=== PATIENT | female | born 1970 | race Caucasian/White ===

== ENCOUNTER 2016-11-02 10:41 | Day surgery (SDC) | payer OTHER ==
[~2016-11-02] VITALS: Ht 175.3 cm; Wt 93.0 kg
[~2016-11-02 10:41] MED LIST: 0.9% Sodium Chloride 1,000 ML IV SCH; AMT25T PO; GABA300C PO; OMEP20TA86 PO; Sodium Chloride LOK Flush 10 mL Syringe IV PRN; fentaNYL-PF 50 mCg/mL 2 mL Inj IVPUSH PRN
[2016-11-02 10:57] VITALS: BP 127/91; PULSE 65; RESP 16; O2SAT 98
[2016-11-02 11:38] VITALS: BP 116/78; PULSE 63; RESP 14; O2SAT 98
[2016-11-02 11:51] VITALS: BP 108/77; PULSE 75; O2SAT 98
--- NOTE | 2016-11-02 13:04 | ENDO ---
[address] [address] ENDOSCOPY PROCEDURE PATIENT: MAGGIE PATINO : 1970 MR#: [id number] ADMIT: 11/02/2016 JOB ID: [id number] DATE: 11/02/2016 PROCEDURE: Esophagogastroduodenoscopy. 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 She currently is not taking her PPI daily as she is worried about possible side effects. The patient's ASA classification is 1. Mallampati score is 2. MEDICATIONS: 1. Versed 5 mg. 2. Fentanyl 100 mcg. INSTRUMENT USED: GIF H 180 J. PROCEDURE DETAILS: After informed consent was obtained, the patient was brought into the GI suite, where she was placed on oxygen via nasal cannula and then monitored with continuous pulse oximeter, telemetry and blood pressure monitoring. A time-out was performed. Then, she was placed in a left lateral decubitus position and medications were administered for sedation. A bite block was placed. The standard EGD scope was inserted through the bite block and advanced under direct visualization to the second portion of duodenum without difficulty. FINDINGS: 1. In the duodenal bulb, the mucosa was erythematous and slightly edematous suggestive of duodenitis. Multiple biopsies were obtained. 2. Normal-appearing pylorus, antrum and gastric body. 3. Retroflexed views of the gastric body revealed a normal-appearing cardia and fundus. A hiatal hernia was appreciated. 4. The diaphragmatic hiatus was at approximately 41 cm and the GE junction was at approximately 39 cm. Arising from the GE junction were several short tongues of salmon-colored mucosa suggestive of Ames's. Multiple biopsies were obtained. The remainder of the esophagus otherwise was unremarkable. IMPRESSION: 1. Duodenitis. 2. Small hiatal hernia. 3. Irregular gastroesophageal junction suggestive of Ames's. RECOMMENDATIONS: 1. Await biopsy results. 2. Restart PPI daily. 3. Reflux precautions. 4. Follow up in GI clinic in 4-6 weeks. COMPLICATIONS: None. ESTIMATED BLOOD LOSS: Less than 5 mL.
--- NOTE | 2016-11-05 12:10 | PATH ---
SURGICAL PATHOLOGY Attending Physician:Eron Arenas CASE STATUS: Signed Out PATIENT NAME: MAGGIE PATINO PID: [id number] : 1970 DATE COLLECTED:11/02/2016 20:57 SPECIMEN: 1: Duodenum, Biopsy 2: Gastric, Biopsy 3: Esophagus, Biopsy CLINICAL HISTORY: 1). DUODENAL BULB BIOPSY 2). RANDOM GASTRIC BIOPSY 3). DISTAL ESOPHAGUS BIOPSY FINAL DIAGNOSIS: 1.DUODENUM, BIOPSY: NO DIAGNOSTIC ABNORMALITY. Negative for intraepithelial lymphocytosis, villous blunting, or other features of celiac sprue. Negative for Giardia organisms, dysplasia and malignancy. 2.RANDOM GASTRIC BIOPSIES: NORMAL GASTRIC CORPUS. Negative for Helicobacter organisms. Negative for intestinal metaplasia. No evidence of dysplasia or malignancy. 3.DISTAL ESOPHAGUS, BIOPSY: GASTRIC GLANDULAR MUCOSA WITH INTESTINAL METAPLASIA, CONSISTENT WITH CARMONA' S ESOPHAGUS. No evidence of malignancy or dysplasia. ICD10 code K22.7 GROSS DESCRIPTION: The specimen is received in three formalin filled containers labeled with the patient's name. 1). The specimen is sublabeled "duodenal bulb" and consists of 2 portions of tissue which aggregate to 0.5 x 0.4 x 0.3 CM. The specimen is entirely submitted in cassette 1A. 2). The specimen is sublabeled "random gastric" are 3 fragments of jerez, soft tissue which aggregate to 0.5 x 0.4 x 0.3 CM. The specimen is entirely submitted in cassette 2A. 3). The specimen is sublabeled "distal esophagus" and consists of multiple portions of tissue which aggregate to 5 x 0.5 x 0.3 CM. The specimen is entirely submitted in cassette 3A. 11/02/2016 [facility] MICRO DESCRIPTION: See diagnosis. ICD-9 CODES: CPT CODES: 1: 82896 2: 18220 3: 19426 Electronically Signed Out Dutch Wei MD [facility] Pathology [facility], [place] [address] Technical component performed at [facility], [facility] [address], [place], [address]
== END 2016-11-02 23:59 | disposition home or self-care (01) ==
LOC: END 10:41
PROVIDERS: ATTEND Internal Medicine Gastroenterology
DX: K22.70 Barrett's esophagus without dysplasia (principal); K29.80 Duodenitis without bleeding; K44.9 Diaphragmatic hernia without obstruction or gangrene; L40.50 Arthropathic psoriasis, unspecified
CPT/HCPCS: 43239; J2250; J7030

== ENCOUNTER 2016-12-24 12:19 | Emergency (ER) | payer OTHER ==
[~2016-12-24] VITALS: Ht 175.3 cm; Wt 91.8 kg
[~2016-12-24 12:19] MED LIST changes: -0.9% Sodium Chloride 1,000 ML IV SCH; -GABA300C PO; -Sodium Chloride LOK Flush 10 mL Syringe IV PRN; -fentaNYL-PF 50 mCg/mL 2 mL Inj IVPUSH PRN
[2016-12-24 12:28] VITALS: BP 152/105; PULSE 102; RESP 18; O2SAT 99
--- NOTE | 2016-12-24 12:41 | ED.REPORT ---
HPI-Abd Pain F 40 and Over Date of Service Dec 24, 2016 ED Provider: Doc,Ed MD History of Present Illness: left side pain under the rib, pain radiated up to shoulder. started 4 years ago. decreased appitete, nausea, no vomiting. alvino is primary care. Saw GI at [facility] 3 years ago, removed colon and part of intestine, no help with the pain. recently did a lot of bending, increase in pain. 05/06 peanut butter and soup make it worse. Just sitting makes it better Nursing Notes Stated Complaint: ABDOMINAL PAIN Chief Complaint: Female Abdominal Pain Nursing Notes Reviewed: Yes Allergies: Coded Allergies: ciprofloxacin (Verified Allergy, Unknown, 11/01/16) Uncoded Allergies: Quinolones (Allergy, Severe, SWELLING (PARTICULARLY CIPRO), 06/12/13) Scheduled Amitriptyline (Amitriptyline) 25 Mg Tab 25 MG PO HS Omeprazole (Omeprazole) 20 Mg Tablet.dr 20 MG PO DAILY General Time Seen by MD: 12:41 Chief Complaint Abdominal pain Hx Obtained From: Patient Sudden in Onset?: No Onset Occurred: More than a week ago... (>6 months) Past Medical History Past Medical History Notes: Upper GI recently Past Surgical History abd surgery 3 years ago, no change in pain after surgery 12/24/2016 Ambulatory Status Independent Review of Systems Basic Review of Systems Eyes: Vision NL, No discharge ENT: No nasal congestion, No pharyngeal pain Hematologic: No bruising Endocrine: No cold intolerance, No heat intolerance, No weight gain, No weight loss Skin: No rash, No itch Neurologic: No weakness, No numbness Psychiatric: Normal thought content Physical Exam Vital Signs Vital Signs (First) Date Time Temp Pulse Resp B/P Pulse Ox O2 Delivery O2 Flow Rate FiO2 12/24/16 12:28 36.3 102 18 152/105 99 12/24/16 15:00 Room Air Initial VS: Reviewed, Vital signs abnormal Head / Eyes: Atraumatic, Normocephalic, PERRL ENT: Mucous membranes moist, Conjunctiva normal, No scleral icterus Neck: Supple, Non-tender, Full range of motion Lymphatic: No lymphadenopathy Extremities: Vascular intact, Neuro intact, No swelling, No tenderness Skin: Warm, Dry, No cyanosis Neurologic: Alert, Oriented, Nonfocal Psychiatric: Mood/affect normal, Behavior normal, Normal thought content General/Constitutional: Awake, Alert, No acute distress Respiratory / Chest: Atraumatic, Breath sounds NL, Breath sounds = bilat, No respiratory distress Cardiovascular: Heart rate NL, Regular rhythm, Heart sounds NL tender to palpation in epigastric and left upper quadreant, no rebound no quarding Back: Atraumatic, Inspection NL, Full range of motion, Painless range of motion Interpretation & Diagnostics Lab Results Interpretation Result Diagram: 12/24/16 1255 12/24/16 1255 Test 12/24/16 12:55 White Blood Count 5.2th/mm3 (3.8-10.1) Red Blood Count 4.95mil/mm3 (3.90-5.20) Hemoglobin 15.4g/dL (12.0-15.6) Hematocrit 44.6% (35.0-46.0) Mean Corpuscular Volume 90.1fL (81-100) Mean Corpuscular Hemoglobin 31.1pg (27.0-35.0) Mean Corpuscular Hemoglobin Concent 34.5% (32.0-37.0) Red Cell Distribution Width 11.8% (12.3-15.4) Platelet Count 192bil/L (150-400) Neutrophils (%) (Auto) 67.3% (40-74) Lymphocytes (%) (Auto) 27.4% (14-46) Monocytes (%) (Auto) 3.9% (4-12) Eosinophils (%) (Auto) 0.8% (0-5) Basophils (%) (Auto) 0.4% (0-3) Sodium Level 137mEq/L (134-144) Potassium Level 4.0mEq/L (3.5-5.2) Chloride Level 101mEq/L (97-108) Carbon Dioxide Level 20mmol/L (18-29) Blood Urea Nitrogen 10mg/dL (6-24) Creatinine 0.68mg/dL (0.57-1.00) Estimat Glomerular Filtration Rate 135mL/min (>59) Glucose Level 108mg/dL (60-99) Calcium Level 9.1mg/dL (8.5-10.1) Magnesium Level 1.8mg/dL (1.6-2.6) Total Bilirubin 0.3mg/dL (0.0-1.2) Aspartate Amino Transf (AST/SGOT) 21U/L (0-50) Alanine Aminotransferase (ALT/SGPT) 17U/L (0-32) Alkaline Phosphatase 72U/L (25-150) Troponin T < 0.010ug/L (0.0-0.011) Total Protein 7.6g/dL (6.4-8.4) Albumin 4.4g/dL (3.4-5.0) Lipase 16U/L (13-60) Re-Eval/Medical Decision Med Decision/Clinical Course 46 year old female with 4 years duration of left upper quadrant pain. Has had US, CT KUB and, x-ray and upper gi. no answers are forthcoming. Normal labs in ER. Discussed with Arielle Atkinson will order HIDA scan and US of pelvic area. Patient not happy with no answer. Exam is not consistent with appendicitis, hepatitis or urinary tract infection Discharge & Departure Primary Impression: Upper abdominal pain Disposition: Home Patient Instructions: Gallbladder Ejection Fraction (GEN), Low Fat Diet (ED) Additional Instructions: Your labs are normal today. You have been provided a copy of your recent imaging. No answers have been forth coming about the cause of your pain. I spoke with Keyonna Atkinson and she will order the HIDA scan. I also think a pelvic Ultrasound might shed some light. Please follow up with her. You are being provided ketorolac to help with your pain. I wish you luck in finding the answer. I am sorry this has been such a frustrating process. Referrals: Arielle Atkinson PA-C (PCP) EDSupervising Provider for APC: Prosper Foss MD copies to: Arielle Atkinson PA-C, Sue ARNP Dec 24, 2016 12:41
[2016-12-24] MEDS ORDERED: 0.9% Sodium Chloride 1,000 ML IV ONE (12:55)
[2016-12-24 13:11] LABS: BASOPHILS % (AUTO) 0.4 % (0-3); EOSINOPHILS % (AUTO) 0.8 % (0-5); MONOCYTES % (AUTO) 3.9 % (4-12); Mean Corpuscular Hemoglobin 31.1 pg (27.0-35.0); Mean Corpuscular Volume 90.1 fL (81-100); NEUTROPHILS % (AUTO) 67.3 % (40-74); Platelet Count 192 bil/L (150-400)
[2016-12-24 13:32] LABS: Magnesium 1.8 mg/dL (1.6-2.6)
[2016-12-24 15:00] VITALS: BP 133/80; PULSE 79; RESP 16; O2SAT 100
== END 2016-12-24 15:01 | disposition home or self-care (01) ==
LOC: SED 12:19
DX: R10.12 Left upper quadrant pain (principal); R10.13 Epigastric pain; Z88.1 Allergy status to other antibiotic agents
CPT/HCPCS: 36415; 80053; 81025; 83690; 83735; 84484; 85025; 93005; 96361; 96374; 99285; J7030